=== PATIENT | female | born 1980 | race Caucasian/White ===

== ENCOUNTER → 2016-03-12 | Outpatient (REF) | payer OTHER | LOC: M LAB REF 11:48 | PROVIDERS: ATTEND Internal Medicine Endocrinology, Diabetes & Metabolism | DX: E04.1 Nontoxic single thyroid nodule (principal) ==

== ENCOUNTER → 2016-03-16 | Outpatient (CLI) | payer OTHER ==
[2016-03-16 17:20] LABS: FREE T4 1.02 NG/DL (0.76-1.46)
== END ==
LOC: M LRY 11:19
PROVIDERS: ATTEND Physician Assistant Medical
DX: E03.9 Hypothyroidism, unspecified (principal); E78.2 Mixed hyperlipidemia; E55.9 Vitamin D deficiency, unspecified

== ENCOUNTER → 2016-06-11 | Outpatient (CLI) | payer OTHER | LOC: M LRY 08:51 | PROVIDERS: ATTEND Physician Assistant Medical | DX: E03.9 Hypothyroidism, unspecified (principal) ==

== ENCOUNTER → 2016-10-30 | Outpatient (CLI) | payer OTHER ==
[2016-10-30 17:34] LABS: ANION GAP 10 MEQ/L (8-16); BLOOD UREA NITROGEN 8 MG/DL (7-18); CALCIUM LEVEL 9.2 MG/DL (8.5-10.1); CARBON DIOXIDE LEVEL 21 MEQ/L (21-32); CHLORIDE LEVEL 109 MEQ/L (98-107); CREATININE FOR GFR 0.73 MG/DL (0.55-1.02); FREE T4 1.15 NG/DL (0.76-1.46); GLOMERULAR FILTRATION RATE > 60.0 (>60); GLUCOSE, FASTING 79 MG/DL (70-105); POTASSIUM SERUM 4.1 MEQ/L (3.5-5.1); SODIUM LEVEL 140 MEQ/L (136-145)
== END ==
LOC: M LRY 13:09
PROVIDERS: ATTEND Nurse Practitioner Family
DX: E03.9 Hypothyroidism, unspecified (principal); E55.9 Vitamin D deficiency, unspecified; E28.2 Polycystic ovarian syndrome
CPT/HCPCS: 36415; 80048; 82306; 83036; 84439; 84443; G0463

== ENCOUNTER → 2016-12-05 | Outpatient (REF) | payer OTHER | LOC: M SFHCLERA 18:16 | PROVIDERS: ATTEND Nurse Practitioner Family | DX: R30.0 Dysuria (principal) ==

== ENCOUNTER → 2016-12-24 | Outpatient (REF) | payer OTHER ==
[2016-12-24 17:07] LABS: MEAN CORPUSCULAR HGB CONC 33.2 g/dl (32.0-36.5); MEAN CORPUSCULAR VOLUME 93.4 fl (80.0-96.0); RED CELL DISTRIBUTION WIDTH 13.9 % (11.5-14.5); WHITE BLOOD COUNT 8.4 10^3/uL (4.0-10.0)
[2016-12-24 18:45] LABS: ANION GAP 5 MEQ/L (8-16); BLOOD UREA NITROGEN 12 MG/DL (7-18); CALCIUM LEVEL 9.2 MG/DL (8.5-10.1); CARBON DIOXIDE LEVEL 29 MEQ/L (21-32); CHLORIDE LEVEL 108 MEQ/L (98-107); CREATININE FOR GFR 0.81 MG/DL (0.55-1.02); GLOMERULAR FILTRATION RATE > 60.0 (>60); GLUCOSE, FASTING 63 MG/DL (70-105); POTASSIUM SERUM 4.3 MEQ/L (3.5-5.1); SODIUM LEVEL 142 MEQ/L (136-145)
[2016-12-24 21:59] LABS: EOSINOPHILS 5 % (0-5)
[2016-12-24 22:29] LABS: CBCMD ORDERED? YES (YES)
== END ==
LOC: M SFHCLERA 13:40
PROVIDERS: ATTEND Family Medicine
DX: R50.9 Fever, unspecified (principal); R05 Cough

== ENCOUNTER → 2017-07-31 | Outpatient (REF) | payer OTHER ==
[2017-08-01 15:48] LABS: CHLAMYDIA DNA AMPLIFICATION NEGATIVE (NEGATIVE); GC DNA AMPLIFICATION NEGATIVE (NEGATIVE)
== END ==
LOC: M LAB REF 08-01 13:28
DX: R10.2 Pelvic and perineal pain (principal)

== ENCOUNTER → 2017-09-09 | Outpatient (REF) | payer OTHER | LOC: M SFHCLERA 16:16 | DX: E03.9 Hypothyroidism, unspecified (principal) ==

== ENCOUNTER → 2018-02-05 | Outpatient (CLI) | payer OTHER | LOC: M RAD 14:08 | DX: N88.8 Other specified noninflammatory disorders of cervix uteri (principal); E04.1 Nontoxic single thyroid nodule; R10.2 Pelvic and perineal pain | CPT/HCPCS: 76856 ==

== ENCOUNTER → 2018-03-06 | Outpatient (REF) | payer OTHER | LOC: M SFHCLERA 11:33 | PROVIDERS: ATTEND Family Medicine | DX: E03.9 Hypothyroidism, unspecified (principal); E78.1 Pure hyperglyceridemia; Z53.8 Procedure and treatment not carried out for other reasons ==